=== PATIENT | male | born 1995 | race Caucasian/White ===

== ENCOUNTER 2018-06-01 13:53 | Emergency (ER) | payer OTHER ==
[2018-06-01] MEDS ORDERED: BUFFERED LIDOCAINE 10 ML SYRINGE SUBQ ONE (15:21)
--- NOTE | 2018-06-01 15:21 | ED Physician Documentation ---
PD HPI UPPER EXT INJURY - Stated complaint Stated Complaint: WRIST LAC - Chief complaint Chief Complaint: Laceration - History obtained from History obtained from: Patient - History of Present Illness Location: Right (Right-handed gentleman who is up-to-date on tetanus, active duty in the [employer] has a laceration from broken glass on the wrist flexor crease it happened at work just prior to arrival.) Review of Systems Constitutional: reports: Reviewed and negative Nose: reports: Reviewed and negative Throat: reports: Reviewed and negative PD PAST MEDICAL HISTORY - Past Medical History Past Medical History: No - Past Surgical History Past Surgical History: No - Allergies Allergies/Adverse Reactions: Allergies Allergy/AdvReac Type Severity Reaction Status Date / Time No Known Drug Allergies Allergy Verified 06/01/18 14:01 - Social History Does the pt smoke?: No Smoking Status: Never smoker Does the pt drink ETOH?: No Does the pt have substance abuse?: No PD ED PE NORMAL - Vitals Vital signs reviewed: Yes - General General: Alert and oriented X 3, No acute distress - Extremities Extremities: Other (1cm shallow lac mid wrist flexor crease with normal flexor function all digits.) - Neuro Neuro: Alert and oriented X 3, Normal speech Results - Vitals Vitals: Vital Signs - 24 hr 06/01/18 13:57 Temperature 36 C L Heart Rate 78 Respiratory 16 Rate Blood Pressure 119/77 O2 Saturation 98 Oxygen O2 Source Room air Procedures - Laceration (location) R wrist Length in cm: 1 Wound type: Linear Neurovascular status: Sensory intact, Motor intact, Vascular intact Anesthesia: Lidocaine 1%, With bicarb Wound Preparation: Irrigated copiously NS Skin layer closure: Nylon, Interrupted, Size #-0 - enter number (4-0), Sutures - enter # (2) Other: Tetanus UTD Complexity: Simple PD MEDICAL DECISION MAKING - Sepsis Event Vital Signs: Vital Signs - 24 hr 06/01/18 13:57 Temperature 36 C L Heart Rate 78 Respiratory 16 Rate Blood Pressure 119/77 O2 Saturation 98 Oxygen O2 Source Room air Departure - Departure Disposition: 01 Home, Self Care Clinical Impression: Laceration Condition: Good Record reviewed to determine appropriate education?: Yes Instructions: ED Laceration Hand Comments: Come back for any signs of infection which would include: Redness, swelling, drainage, increased pain, or fevers. Follow-up with your physician in 14 days for suture removal.
[2018-06-01 15:44] VITALS: BP 108/63
== END 2018-06-01 15:43 | disposition home or self-care (01) ==
LOC: ED 13:53
DX: S61.511A Laceration without foreign body of right wrist, initial encounter (principal); W25.XXXA Contact with sharp glass, initial encounter; Y99.1 Military activity
CPT/HCPCS: 12001; 99282; 99283